=== PATIENT | female | born 1955 | race Caucasian/White ===

== ENCOUNTER 2016-09-26 10:17 | Inpatient (IN) | payer BC, MEDICARE ==
--- NOTE | ~2016-09-26 | DS ---
Unit #: [id number] #: [id number] Patient: DORIE CARDENAS [id number] [address] [place], [place] [address] [id number] I MR#: [id number] NAME: DORIE CARDENAS ROOM: 312 Age: 61 Sex: F Admission Date: 09/26/2016 : 1955 Discharge Date: Attending Physician: Marilin Gomes M.D. Primary Care Physician: Vasile Arroyo D.O. DISCHARGE SUMMARY HISTORY OF PRESENT ILLNESS Ms. Cardenas is a pleasant 61-year-old lady who has past medical history of COPD. Came to the emergency room with altered mental status. Patient was confused for several days. She has been having trouble walking for several months. The patient is not complaining of significantly increased shortness of air, cough or wheezing. No cold or flu symptoms. No fevers. No chills. (1) fatigue without dysuria. HOSPITAL COURSE The patient was placed on medications; however, the mental status medications were held, including the pain medication and the muscle relaxer were decreased significantly. The patient's mental status improved dramatically and on hospital day 5 was ready to be sent home. The patient's mental status continued to improve. The patient was more mobile; however, she was still requiring assistance. Therefore, she is going to be sent to rehab. DISCHARGE MEDICATIONS 1. Albuterol nebs q.i.d. p.r.n. shortness of breath. 2. Fioricet 1 tablet q.8 hours p.r.n. headache. 3. Lyrica 300 mg every morning. 4. Lovenox 40 mg subcu q.24 hours. 5. Spiriva 1 capsule inhaled daily. 6. Paxil 20 mg daily. 7. Docusate sodium 100 mg b.i.d. 8. Prilosec 20 mg b.i.d. 9. Oxycodone/acetaminophen 10/325 mg q.6 hours p.r.n. pain. 10. Potassium chloride replacement protocol. 11. Magnesium replacement protocol. FOLLOW-UP 1. Follow up with Dr. Vegas in 2 weeks. 2. Follow up with her PCP in 2 weeks. Dictated by... Oc Castañeda TD: 10/02/2016 11:16 JOB #: [id number] Unit #: [id number] #: [id number] Patient: DORIE CARDENAS DISCHARGE SUMMARY Page 1 of 1 X Bryan Gomes MD X DISCHARGE SUMMARY
--- NOTE | ~2016-09-26 | HP ---
Unit #: [id number] #: [id number] Patient: DORIE CARDENAS [id number] [address] [place], [place] [address] [id number] I MR#: [id number] NAME: DORIE CARDENAS ROOM: 312 Age: 61 Sex: F Admission Date: 09/26/2016 : 1955 Attending Physician: Marilin Gomes M.D. Primary Care Physician: Vasile Arroyo D.O. HISTORY AND PHYSICAL HISTORY OF PRESENT ILLNESS Miss Cardenas is a 61-year-old female with a history of COPD, who came to the emergency room with altered mental status. She has had confusion over the last several days. The patient herself tells me that she has been struggling to walk for some time now, maybe months. She has gotten to where she cannot even walk across the room. However, she is really not complaining of increased shortness of air, increased cough, or increased wheeze. She denies any new cold or flulike symptoms. Nonetheless, she was admitted to us ostensibly for exacerbation of COPD. She is presently denying dysuria. PAST MEDICAL HISTORY Past medical history is significant for COPD. We saw her back in October of 2014 at which point she was feeling bad and coughing up some yellow secretions. We thought that she had a pneumonia at that time. History of a questionable heart attack for which she saw Dr. Estes in the past, history of anemia, depression, anxiety, chronic neck and back pain. PAST SURGICAL HISTORY Surgeries include cataract surgery, back surgery, neck surgery. MEDICATION Medications on admission had included: 1. Ventolin MDI two puffs q.i.d. 2. Hydroxyzine one to two t.i.d. 3. Prilosec 20 mg p.o. daily. 4. Xanax 1 mg p.r.n. 5. Klonopin 1 mg p.r.n. for sleep. 6. Colace 100 mg p.o. daily. 7. Oxycodone/acetaminophen 10/325 q.4 h. p.r.n. 8. Paxil 20 mg p.o. daily. 9. Lyrica 300 mg p.o. daily. 10. Spiriva one capsule inhaled daily. This is not p.r.n. ALLERGIES Cephalosporins, cortisone, prednisone, fondaparinux which supposedly causes GI bleed. SOCIAL HISTORY She did smoke but she said she quit, I thought, five years ago. Previously she had told us that it was four years ago so five is probably correct. Unit #: [id number] #: [id number] Patient: DORIE CARDENAS FAMILY HISTORY Significant for heart disease in her mother. REVIEW OF SYSTEMS She has neck pain. She has back pain. She has extremity pain. She said she has bumps on her leg. She is not really complaining of leg swelling. Appetite is fair. All other systems are negative except as mentioned on exam. PHYSICAL EXAMINATION GENERAL APPEARANCE: She presents as an older female in no acute distress. VITAL SIGNS: Temperature is 99.1, pulse 86, respirations 16, blood pressure of 124/65, saturation is 97%. NECK: Without adenopathy. LUNGS: Examination of her lung emery shows her breathing is not labored. Lungs are actually fairly clear bilaterally. HEART: Heart was regular. ABDOMEN: Soft, nontender, bowel sounds present. EXTREMITIES: Without edema. NEUROLOGIC: Neurologically she is awake and alert. DIAGNOSTIC STUDIES IMAGING: Her chest x-ray to my exam revealed mild increased interstitial markings but probably no focal infiltrates in my opinion. This was actually read by radiology as slightly low volumes and mild pulmonary venous prominence without edema and pneumonia or effusion. She had actually had CT lumbar spine back in August of 2015 and at that time she had mild generalized disc bulge L4-5 and either scar or status post left laminectomy L4. However, that was a year ago. LABORATORY: Her white blood cell count this admission was 7.7, hemoglobin and hematocrit of 13.7 and 42, platelets 163,000. Serum chemistry is significant for a glucose of 133, BUN 9, creatinine 1, potassium a little low at 3. Rest of the chemistries were basically normal except for an alkaline phosphatase of 107. BNP was 33 and lactic was 1.3. Blood gas was not done. IMPRESSION 1. Generalized weakness, etiology uncertain, but this could be on the basis of chronic spinal issues. 2. Altered mental status, etiology uncertain, but I am not sure it has anything to do with her lungs. 3. Questionable exacerbation of chronic obstructive pulmonary disease. I do not think she has this because on auscultation she sounds pretty good and the only connection between altered mental status and her lungs would be hypercapnia but we cannot be sure of that since no blood gas was done. 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 PLAN I will check a blood gas. Will have Physical Therapy see her. I will try to rule out infection wherever, not limited to the lung. I see she already had blood cultures and I will go ahead with antibiotics. I do not think she needs IV steroids from a lung standpoint but will check a sed rate just to see if it is really high and, if so, we could even consider polymyalgia rheumatica. Unit #: [id number] #: [id number] Patient: DORIE CARDENAS Dictated by Oc Woodward/isiah TD: 09/26/2016 18:01 JOB #: [id number] HISTORY AND PHYSICAL Page 1 of 1 X Shawn Vegas MD X HISTORY AND PHYSICAL
--- NOTE | ~2016-09-26 | CT57 ---
[facility] A Service of [facility] & [facility] RADIOLOGY TEXT RESULTS PATIENT: DORIE CARDENAS LOCATION: [facility] 312- : 55 UNIT #: [id number] AGE: [address]: Bryan Gomes MD SEX: F ORDER DR: [id number] [facility] [address]. [place], [place] [address] [id number] I MR#: [id number] #: [id number] NAME: DORIE CARDENAS : 1955 SEX: F STUDY DATE/TIME: 09/27/2016 21:50 UNIT: A U ROOM: [facility] STUDY DESCRIPTION: CT Chest Wo Cont Attending Physician: Marilin Gomes M.D. Ordering Physician: Shawn Vegas M.D. Primary Care Physician: Vasile Arroyo D.O. MEDICAL IMAGING REPORT This report is preliminary unless electronic signature is present EXAM Chest CT 09/27 21:50 INDICATIONS Shortness of air today. History of COPD. TECHNIQUE Axial noncontrast images were obtained through the chest. Multiplanar reformats were obtained. Comparison made with 10/12/2014. This CT exam was performed with one or more of the following radiation dose reduction techniques: automatic control, adjustment of mA and/or kV according to patient size, and iterative reconstruction. FINDINGS No adenopathy is seen. Patient is status post cervical fusion. There is atherosclerotic disease and coronary artery disease. No pericardial effusion. No significant pleural effusion. There is some atelectasis or scarring in the right lower lobe. There is emphysema. No evidence of pneumonia at this time. No suspicious pulmonary lesions. Upper abdomen demonstrates some cortical scarring in the right kidney. IMPRESSION 1. Emphysema. No evidence of acute pneumonia. No suspicious pulmonary lesions. 2. Atelectasis or scarring in the right lower lobe. 3. Atherosclerotic disease and coronary artery disease. Dictated by... Vasile Goodson Jr., M.D. THIS IS AN ELECTRONICALLY VERIFIED REPORT Vasile Goodson Jr., M.D. at 09/28/2016 5:51 AM RLK/rnr STS. [facility] A Service of [facility] & [facility] RADIOLOGY TEXT RESULTS PATIENT: DORIE CARDENAS LOCATION: [facility] 312-01 : 55 UNIT #: [id number] AGE: [address]: Bryan Gomes MD SEX: F ORDER DR: TD: 09/28/2016 02:14 JOB #: [id number] MEDICAL IMAGING REPORT Page 1 of 1 COPY
--- NOTE | ~2016-09-26 | EKG ---
PATIENT: DORIE CARDENAS UNIT #: [id number] Ventricular Rate: 98 BPM Atrial Rate: 98 BPM P-R Interval: 142 ms QRS Duration: 88 ms Q-T Interval: 368 ms QTC Calculation(Bezet): 469 ms P [place]: 48 degrees Calculated R [place]: 37 degrees Calculated T [place]: -5 degrees Diagnosis Line: Normal sinus rhythm Diagnosis Line: Cannot rule out Inferior infarct , age Diagnosis Line: undetermined Diagnosis Line: T wave abnormality, consider anterior ischemia Diagnosis Line: Abnormal ECG Diagnosis Line: When compared with ECG of 15-MAR-2015 00:52, Diagnosis Line: Minimal criteria for Inferior infarct are now Diagnosis Line: Present Diagnosis Line: Confirmed by DELTA ELY MD ([id number]) on Diagnosis Line: 09/27/2016 3:59:23 PM INTERPRETING MD: GIANCARLO
--- NOTE | ~2016-09-26 | CR72 ---
[facility] A Service of [facility] & [facility] RADIOLOGY TEXT RESULTS PATIENT: DORIE CARDENAS LOCATION: [facility] : 55 UNIT #: [id number] AGE: [address]: Bryan Gomes MD SEX: F ORDER DR: [id number] [facility] [address] [place], [place] [address] [id number] MR#: [id number] Acc #: [id number] NAME: DORIE CARDENAS : 1955 SEX: F STUDY DATE/TIME: 09/26/2016 10:52 UNIT: [facility] ROOM: STUDY DESCRIPTION: CR Chest Single View Portable Attending Physician: Raúl Proctor M.D. Ordering Physician: Raúl Proctor M.D. Primary Care Physician: Vasile Arroyo D.O. MEDICAL IMAGING REPORT This report is preliminary unless electronic signature is present EXAM Chest, portable, 09/26/2016, 1052 hours. CLINICAL HISTORY 61-year-old woman with a 2-day history of shortness of air, weakness, and altered mental status. COMPARISON 03/14/2015 FINDINGS Portable upright chest demonstrates normal heart size with stable tortuous aorta. Lung volumes are slightly low. There is mild pulmonary venous prominence without definite edema, pneumonia, or effusion. IMPRESSION Slightly low lung volumes with normal heart size and stable tortuous aorta. There is mild pulmonary venous prominence without definite edema, pneumonia, or effusion. Dictated by... Patricai Cruz M.D. THIS IS AN ELECTRONICALLY VERIFIED REPORT Patricia Cruz M.D. at 09/26/2016 2:31 PM VALERIEM/parish TD: 09/26/2016 12:16 JOB #: [id number] MEDICAL IMAGING REPORT [facility] A Service of [facility] & [facility] RADIOLOGY TEXT RESULTS PATIENT: DORIE CARDENAS LOCATION: [facility] : 55 UNIT #: [id number] AGE: [address]: Bryan Gomes MD SEX: F ORDER DR: Page 1 of 1 COPY
--- NOTE | ~2016-09-26 | CR72 ---
[facility] A Service of [facility] & [facility] RADIOLOGY TEXT RESULTS PATIENT: DORIE CARDENAS LOCATION: [facility] 312- : 55 UNIT #: [id number] AGE: [address]: Bryan Gomes MD SEX: F ORDER DR: [id number] [facility] [address] [place], [place] [address] [id number] I MR#: [id number] Acc #: [id number] NAME: DORIE CARDENAS : 1955 SEX: F STUDY DATE/TIME: 09/30/2016 5:26 UNIT: [address] ROOM: [facility] STUDY DESCRIPTION: CR Chest Single View Portable Attending Physician: Marilin Gomes M.D. Ordering Physician: Marilin Gomes M.D. Primary Care Physician: Vasile Arroyo D.O. MEDICAL IMAGING REPORT This report is preliminary unless electronic signature is present EXAM AP portable chest, 09/30/2016. HISTORY Shortness of breath and generalized weakness since 09/26/2016. Additional history of coronary artery disease, prior myocardial infarction, COPD, emphysema. COMPARISON AP portable chest 09/26/2016. CT chest 09/27/2016. FINDINGS Clear lungs. Normal heart size. No pleural effusion or pneumothorax. Surgical changes in the cervical spine. No acute osseous abnormalities. Emphysematous changes are demonstrated to better advantage on the CT chest from 09/27/2016. IMPRESSION No acute cardiopulmonary findings. Dictated by... Mana Hernandez M.D. THIS IS AN ELECTRONICALLY VERIFIED REPORT Mana Hernandez M.D. at 10/01/2016 2:00 PM JUAN/yevgeniy TD: 09/30/2016 11:14 JOB #: [id number] MEDICAL IMAGING REPORT Page 1 of 1 COPY
--- NOTE | ~2016-09-26 | CT71 ---
[facility] A Service of [facility] RADIOLOGY TEXT RESULTS PATIENT: DORIE CARDENAS LOCATION: [facility] : 55 UNIT #: [id number] AGE: [address]: Bryan Gomes MD SEX: F ORDER DR: [id number] [facility] [address] [place], [place] [address] [id number] I MR#: [id number] #: [id number] NAME: DORIE CARDENAS : 1955 SEX: F STUDY DATE/TIME: 09/26/2016 18:58 UNIT: [address] ROOM: [facility] STUDY DESCRIPTION: CT Head Wo Contrast Attending Physician: Marilin Gomes M.D. Ordering Physician: Shawn Vegas M.D. Primary Care Physician: Vasile Arroyo D.O. MEDICAL IMAGING REPORT This report is preliminary unless electronic signature is present EXAM CT head without contrast. INDICATIONS Confusion for the past [address] head. This CT exam was performed with one or more of the following radiation dose reduction techniques: automatic exposure control, adjustment of mA and/or kV according to patient size, and iterative reconstruction. COMPARISON 10/18/13 FINDINGS No hemorrhage, abnormal mass effect, extraaxial fluid collection or hydrocephalus. No evidence for acute or early subacute large territory infarct. No depressed calvarial fracture. The paranasal sinuses and mastoid air cells are clear. IMPRESSION No acute intracranial findings. Dictated by... Ronaldo Silva M.D. THIS IS AN ELECTRONICALLY VERIFIED REPORT Ronaldo Silva M.D. at 09/27/2016 9:30 AM IRAM/ashlyn TD: 09/26/2016 21:44 [facility] A Service [facility] RADIOLOGY TEXT RESULTS PATIENT: DORIE CARDENAS LOCATION: [facility] : 55 UNIT #: [id number] AGE: [address]: Bryan Gomes MD SEX: F ORDER DR: JOB #: [id number] MEDICAL IMAGING REPORT Page 1 of 1 COPY
[~2016-09-26 10:17] MED LIST: ACETAMINOPHEN325 MG PO; ALBUTEROL0.63 MG/3 IH; ALBUTEROL17 GM INH; ALPRAZOLAM PO; AMITIZA24 MCG PO; ASPIRIN1 GM; ASPIRIN81 M1 PO; BAYER ASPIRIN325 M1 PO; BENTYL20 MG PO; CECLOR500 MG PO; CIPRO PO; COMBIVENT U/D3 M1 INH; COMBIVENT14.7 GM INH; COUMADIN1 MG; FLEXERIL10 MG PO; GUAIFENESIN600 MG PO; K-DUR20 ME1 PO; KLONOPIN0.5 MG PO; KLONOPIN1 MG PO; LASIX20 MG PO; LEVAQUIN PO; LEVAQUIN750 MG PO; LEVSIN PO; LYRICA25 MG; LYRICA300 MG PO; LYRICA75 MG PO; MAG-OXIDE400 MG PO; MEDROL4 MG/DOSE- PO; MS CONTIN15 MG; MS CONTIN15 MG PO; NICOTINE TRANSD14 MG EXT; OXYCODONE-ACET1 EACH PO; PAXIL PO; PAXIL10 MG; PAXIL10 MG PO; PEPCID PO; PERCOCET 10/3251 TAB PO; PERCOCET10 PO; PERCOCET7.5; PHENERGAN25 MG PO; PREDNISONE PO; PROAIR HFA8.5 GM IH; PROMETHAZINE HC25 MG PO; PROTONIX20 MG PO; RISPERDAL0.5 M1 PO; SPIRIVA18 MCG INH; VENTOLIN5 MG/ML INH; XANAX XR2 MG PO; XANAX0.5 M1 PO; XANAX0.5 MG; XANAX0.5 MG PO; ZITHROMAX1 G/PKT PO; ZOCOR20 MG PO
[2016-09-26 11:13] LABS: URINE APPEARANCE CLEAR; URINE BLOOD NEG (NEG); URINE COLOR DK YELLOW; URINE GLUCOSE NEG (NEG); URINE KETONE NEG (NEG); URINE LEUKOCYTE ESTERASE TRACE (NEG); URINE NITRATE NEG (NEG); URINE PH 5.5 (5-8); URINE PROTEIN NEG (NEG); URINE SPECIFIC GRAVITY 1.023 (1.003-1.035)
[2016-09-26 11:16] LABS: U HYALINE CASTS AUWI 0-2 /[LPF]; URBCS1 AUWI 0-2 /[HPF] (0-2); URINE BACTERIA AUWI NEG (NEGATIVE); URINE SQUAMOUS EPITHELIAL CELL OCC /[HPF]; UWBCS1 AUWI 0-2 (0-5)
[2016-09-26 11:20] LABS: CULTURE INDICATED? NO; URINE BILIRUBIN NEG (NEG); URINE SOURCE CATH
[2016-09-26 11:25] LABS: BASOPHIL% 0.6 % (0-2.5); DIFF IND NO; EOSINOPHIL# 0.3 X10e3 (0-0.7); HEMATOCRIT 42.2 % (35.0-45.0); HEMOGLOBIN 13.7 gm/dL (12.0-16.0); LYMPHOCYTE# 2.3 X10e3 (1.0-3.5); LYMPHOCYTE% 29.8 % (17.0-45.0); MEAN CELL VOLUME 89.5 FL (83-96); MEAN CORPUSCULAR HEMOGLOBIN 28.9 PG (28-34); MEAN CORPUSCULAR HGB CONC 32.3 g/dL (30-36); MEAN PLATELET VOLUME 8.1 FL (6.5-11.5); MONOCYTE# 0.4 X10e3 (0-1.0); MONOCYTE% 5.3 % (3.0-12.0); NEUTROPHIL# 4.6 X10e3 (1.5-7.1); NEUTROPHIL% 60.3 % (40-75); PLATELET COUNT 163 X10e3 (140-420); RED BLOOD COUNT 4.72 X10e (3.90-5.30); RED CELL DISTRIBUTION WIDTH 14.7 % (11.0-15.5); WHITE BLOOD COUNT 7.7 X10e3 (4.0-10.5)
[2016-09-26 11:30] LABS: POC - CKMB 2.9 ng/mL (0.0-7.9); POC - TROPONIN <0.05 ng/mL (<=0.05)
[2016-09-26 11:56] LABS: ALBUMIN SERUM 3.7 g/dL (3.5-5.0); BILIRUBIN, DIRECT 0.2 mg/dL (0.0-0.2); BILIRUBIN,INDIRECT 0.7 mg/dL (0.0-0.9); BILIRUBIN,TOTAL 0.9 mg/dL (0.2-2.0); CALCIUM SERUM 8.9 mg/dL (8.4-10.2); GLOM FILT RATE Estimated 60.8 mL/min (>60); PROTEIN TOTAL SERUM 7.6 g/dL (6.0-8.3)
[2016-09-26] MEDS ORDERED: ALBUTEROL17 GM INH (12:42)
[2016-09-26] MEDS ORDERED: PRILOSEC PO (12:42)
[2016-09-26] MEDS ORDERED: HYDROXYZINE HCL25 M1 PO (12:42)
[2016-09-26] MEDS ORDERED: PATIENT'S PHARMACY (13:28)
[2016-09-26] MEDS ORDERED: XANAX1 MG PO (13:29)
[2016-09-26] MEDS ORDERED: DOCUSATE SODIU100 MG PO (13:29)
[2016-09-26] MEDS ORDERED: KLONOPIN1 MG PO (13:29)
[2016-09-26] MEDS ORDERED: SPIRIVA18 MCG INH (13:30)
[2016-09-26] MEDS ORDERED: PAXIL PO (13:30)
[2016-09-26] MEDS ORDERED: OXYCODONE-ACET1 EAC1 PO (13:30)
[2016-09-26] MEDS ORDERED: LYRICA PO (13:30)
[2016-09-26 17:40] LABS: ARTERIAL BLD GAS O2 SATURATION 91.3 % (90.0-100.0); ARTERIAL BLOOD GAS CARBOXY HB 1.1 %sat (0.0-9.0); ARTERIAL BLOOD GAS HCO3 28.2 mmol/L; ARTERIAL BLOOD GAS PO2 61.1 mmHg (80.0-100)
[2016-09-26 17:41] LABS: ARTERIAL BLOOD GAS ALLEN TEST N; ARTERIAL BLOOD GAS ART SITE RIGHT RADIAL; ARTERIAL BLOOD GAS DELIVERY NASAL CANNULA; ARTERIAL DRAW? YES
[2016-09-27 06:44] LABS: HEMATOCRIT 37.9 % (35.0-45.0); HEMOGLOBIN 12.3 gm/dL (12.0-16.0); MEAN CORPUSCULAR HEMOGLOBIN 29.1 PG (28-34); MEAN CORPUSCULAR HGB CONC 32.4 g/dL (30-36); MEAN PLATELET VOLUME 9.8 FL (6.5-11.5); RED BLOOD COUNT 4.21 X10e (3.90-5.30); RED CELL DISTRIBUTION WIDTH 14.4 % (11.0-15.5); WHITE BLOOD COUNT 7.2 X10e3 (4.0-10.5)
[2016-09-27 08:47] LABS: BLOOD UREA NITROGEN 8 mg/dL (9-23); BUN/CREATININE RATIO 11.42; CARBON DIOXIDE 25 mmol/L (22-31); CHLORIDE 104 mmol/L (100-111); CREATININE SERUM 0.7 mg/dL (0.6-1.4); GLOM FILT RATE Estimated 93.5 mL/min (>60); GLUCOSE FASTING 156 mg/dL (70-110); SODIUM 138 mmol/L (135-145)
[2016-09-27 09:15] LABS: PROCALCITONIN <0.05 NG/ML
[2016-09-28 19:01] LABS: HEMATOCRIT 39.5 % (35.0-45.0); HEMOGLOBIN 12.9 gm/dL (12.0-16.0); MEAN CELL VOLUME 89.1 FL (83-96); MEAN CORPUSCULAR HEMOGLOBIN 29.1 PG (28-34); MEAN CORPUSCULAR HGB CONC 32.7 g/dL (30-36); MEAN PLATELET VOLUME 8.1 FL (6.5-11.5); RED BLOOD COUNT 4.43 X10e (3.90-5.30); RED CELL DISTRIBUTION WIDTH 14.9 % (11.0-15.5); WHITE BLOOD COUNT 10.5 X10e3 (4.0-10.5)
[2016-09-28 19:28] LABS: ALBUMIN SERUM 3.6 g/dL (3.5-5.0); BILIRUBIN,TOTAL 0.4 mg/dL (0.2-2.0); BUN/CREATININE RATIO 17.5; CALCIUM SERUM 8.6 mg/dL (8.4-10.2); CREATININE SERUM 0.8 mg/dL (0.6-1.4); GLOM FILT RATE Estimated 79.6 mL/min (>60); POTASSIUM 3.2 mmol/L (3.5-5.1); PROTEIN TOTAL SERUM 7.3 g/dL (6.0-8.3)
[2016-09-29 06:16] LABS: HEMATOCRIT 38.2 % (35.0-45.0); HEMOGLOBIN 12.1 gm/dL (12.0-16.0); MEAN CELL VOLUME 89.6 FL (83-96); MEAN CORPUSCULAR HEMOGLOBIN 28.5 PG (28-34); MEAN CORPUSCULAR HGB CONC 31.8 g/dL (30-36); MEAN PLATELET VOLUME 8.3 FL (6.5-11.5); RED BLOOD COUNT 4.26 X10e (3.90-5.30); RED CELL DISTRIBUTION WIDTH 14.7 % (11.0-15.5); WHITE BLOOD COUNT 9.5 X10e3 (4.0-10.5)
[2016-09-29 07:28] LABS: BUN/CREATININE RATIO 21.42; CALCIUM SERUM 8.7 mg/dL (8.4-10.2); CREATININE SERUM 0.7 mg/dL (0.6-1.4); GLOM FILT RATE Estimated 93.5 mL/min (>60); POTASSIUM 4.9 mmol/L (3.5-5.1)
[2016-09-29 17:06] LABS: URINE APPEARANCE CLEAR; URINE BILIRUBIN NEG (NEG); URINE BLOOD 2+ (NEG); URINE COLOR YELLOW; URINE GLUCOSE NEG (NEG); URINE KETONE NEG (NEG); URINE LEUKOCYTE ESTERASE TRACE (NEG); URINE NITRATE NEG (NEG); URINE PH 7.5 (5-8); URINE PROTEIN NEG (NEG); URINE SPECIFIC GRAVITY 1.002 (1.003-1.035); URINE UROBILINOGEN 0.2 MG/DL (NEG)
[2016-09-29 17:09] LABS: URINE BACTERIA AUWI NEG (NEGATIVE); URINE SQUAMOUS EPITHELIAL CELL MOD /[HPF]; UWBCS1 AUWI 0-2 (0-5)
[2016-09-30 05:44] LABS: HEMATOCRIT 35.9 % (35.0-45.0); HEMOGLOBIN 11.7 gm/dL (12.0-16.0); MEAN CORPUSCULAR HEMOGLOBIN 28.9 PG (28-34); MEAN CORPUSCULAR HGB CONC 32.5 g/dL (30-36); MEAN PLATELET VOLUME 7.9 FL (6.5-11.5); RED BLOOD COUNT 4.04 X10e (3.90-5.30); RED CELL DISTRIBUTION WIDTH 14.2 % (11.0-15.5); WHITE BLOOD COUNT 8.2 X10e3 (4.0-10.5)
[2016-09-30 06:24] LABS: BUN/CREATININE RATIO 14.28; CALCIUM SERUM 8.7 mg/dL (8.4-10.2); CREATININE SERUM 0.7 mg/dL (0.6-1.4); GLOM FILT RATE Estimated 93.5 mL/min (>60); MAGNESIUM 1.9 mg/dL (1.6-3.0); PHOSPHOROUS 3.8 mg/dL (2.5-4.6); POTASSIUM 3.9 mmol/L (3.5-5.1)
[2016-10-01 05:31] LABS: BASOPHIL% 0.4 % (0-2.5); EOSINOPHIL# 0.3 X10e3 (0-0.7); EOSINOPHIL% 2.7 % (0.0-7.0); HEMATOCRIT 37.3 % (35.0-45.0); HEMOGLOBIN 12.1 gm/dL (12.0-16.0); LYMPHOCYTE% 19.5 % (17.0-45.0); MEAN CELL VOLUME 88.5 FL (83-96); MEAN CORPUSCULAR HEMOGLOBIN 28.8 PG (28-34); MEAN CORPUSCULAR HGB CONC 32.5 g/dL (30-36); MONOCYTE# 0.6 X10e3 (0-1.0); MONOCYTE% 5.8 % (3.0-12.0); NEUTROPHIL# 7.4 X10e3 (1.5-7.1); NEUTROPHIL% 71.6 % (40-75); PLATELET COUNT 207 X10e3 (140-420); RED BLOOD COUNT 4.22 X10e (3.90-5.30); WHITE BLOOD COUNT 10.4 X10e3 (4.0-10.5)
[2016-10-01 05:46] LABS: DIFF IND NO
[2016-10-01 06:48] LABS: BUN/CREATININE RATIO 18.57; CALCIUM SERUM 8.3 mg/dL (8.4-10.2); CREATININE SERUM 0.7 mg/dL (0.6-1.4); GLOM FILT RATE Estimated 93.5 mL/min (>60); POTASSIUM 3.5 mmol/L (3.5-5.1)
[2016-10-02 06:30] LABS: POTASSIUM 4.5 mmol/L (3.5-5.1)
== END 2016-10-02 12:43 | DRG 93 ==
LOC: CED 10:17 → CEDOF 13:40 → C3A PCU 13:40 → CED 13:40 → C3A PCU 13:40 → CED 14:02 → CEDOF 14:02 → C3A PCU 14:02 → CEDOF 15:26 → C3A PCU 15:26 → CED 17:02 → C3A PCU 17:02 → CEDOF 17:02 → C3A PCU 10-02 12:43
PROVIDERS: Emergency Medicine; Internal Medicine Pulmonary Disease
DX: G92 Toxic encephalopathy (principal); J44.9 Chronic obstructive pulmonary disease, unspecified; E87.6 Hypokalemia; Z87.891 Personal history of nicotine dependence; Z98.49 Cataract extraction status, unspecified eye; Z79.52 Long term (current) use of systemic steroids; R53.1 Weakness; M62.3 Immobility syndrome (paraplegic); G89.29 Other chronic pain; R10.9 Unspecified abdominal pain; T40.2X5A Adverse effect of other opioids, initial encounter; T48.205A Adverse effect of unspecified drugs acting on muscles, initial encounter
CPT/HCPCS: 36415; 36600; 70450; 71010; 71250; 80048; 80053; 80076; 81003; 82150; 82274; 82308; 82553; 82803; 82947; 83605; 83690; 83735; 83880; 84100; 84132; 84484; 85025; 85027; 85652; 87040; 87086; 93005; 94640; 94760; 96361; 96374; 97110; 97116; 97163; 97530; 97535; 99285; G8978-GP; G8979-GP; J0696; J1650; J2543; J2930